=== PATIENT | male | born 1970 | race Caucasian/White ===

== ENCOUNTER → 2020-09-29 | Day surgery (SDC) | payer OTHER ==
[~2020-09-29] MED LIST: ALLEGRA ALLERG180 MG PO; ATIVAN0.5 MG PO; BENTYL10 MG PO; CEFDINIR300 MG PO; CYCLOBENZAPRINE10 MG PO; ETODOLAC500 MG PO; LEVOTHYROXINE50 MCG PO; LISINOPRIL40 MG PO; MECLIZINE 25MG25 MG PO; MOTRIN600 MG PO; NORCO 5-325 TA1 EACH PO; VENTOLIN HFA IN18 GM INH; ZOFRAN4 MG PO; ZOFRAN8 MG PO
== END | disposition home or self-care (01) ==
LOC: FAS 06:39
DX: Z12.11 Encounter for screening for malignant neoplasm of colon (principal); D12.6 Benign neoplasm of colon, unspecified; K63.5 Polyp of colon; K64.8 Other hemorrhoids; K64.4 Residual hemorrhoidal skin tags; I10 Essential (primary) hypertension; J45.909 Unspecified asthma, uncomplicated; E03.9 Hypothyroidism, unspecified; H91.91 Unspecified hearing loss, right ear; Z79.890 Hormone replacement therapy; Z79.899 Other long term (current) drug therapy; Z87.891 Personal history of nicotine dependence
CPT/HCPCS: J2250; J2704; J7120